=== PATIENT | male | born 1990 | race Hispanic/Latino ===

== ENCOUNTER 2017-03-10 08:04 | Day surgery (SDC) | payer MEDICAID ==
[~2017-03-10 08:04] MED LIST: ANCEF/STERILE WATER 2 GM/20 ML 2 GM/20 ML SYRINGE IV NR; MARCAINE 0.5% 30 ML INFILTRATI ONE; MARCAINE 0.5% INFILTRATI ONE; NACL 0.9% IR ONE; NEOSPORIN GU IR ONE
--- NOTE | 2017-03-10 09:15 | Anesthesia Consultation ---
Anesthesia Consult and Med Hx Date of service: 03/10/17 - Airway Anesthetic Teeth Evaluation: Good ROM Head & Neck: Adequate Mallampati Class: Class III Intubation Access Assessment: Probably Good - Pulmonary Exam CTA: Yes - Cardiac Exam Cardiac Exam: No Murmur - Pre-Operative Health Status ASA Pre-Surgery Classification: ASA2 - Pulmonary Hx Smoking: No Hx Asthma: Yes (PRN INHALER/LAST USE 2015) - Central Nervous System Hx Psychiatric Problems: Yes (SEVERE EMOTIONAL BEHAVIOR DISORDER(SEBD)) - Other Systems Hx Alcohol Use: No Hx Substance Use: No Hx Cancer: No - Additional Comments Anesthesia Medical History Comments: AUTISM
[2017-03-10] MEDS ORDERED: PEPCID IV NR (09:30)
[2017-03-10] MEDS ORDERED: LACTATED RINGERS 1,000 ML IV SCH (09:30)
[2017-03-10] MEDS ORDERED: VERSED IV NR (09:30)
--- NOTE | 2017-03-10 09:50 | Short Stay Summary ---
Short Stay Documentation Date of service: 03/10/17 - History H&P: obtained from office - Allergies and Medications Current Medications: Allergies carbamazepine [From Tegretol] Allergy (Verified 03/04/17 09:43) HALLUCINATIONS Home Medications Medication Instructions Recorded Confirmed Last Taken Type Albuterol Sulfate [Albuterol 0.63% 0.63 mg IH TID PRN 03/04/17 03/10/17 History NEBS] Cetirizine HCl [ZyrTEC] 10 mg PO DAILY 03/04/17 03/04/17 03/10/17 07:00 History Clonidine HCl [Catapres] 0.3 mg PO DAILY 03/04/17 03/04/17 03/09/17 20:30 History Montelukast [Singulair] 10 mg PO QPM 03/04/17 03/04/17 03/09/17 20:30 History Ranitidine HCl [Zantac 300 MG TAB] 300 mg PO DAILY 03/04/17 03/04/17 03/09/17 20 :30 History risperiDONE [RisperDAL] 1 mg PO DAILY 03/04/17 03/04/17 03/10/17 07:00 History Active Medications Cefazolin Sodium (Ancef/Sterile Water 2 Gm/20 Ml) 2 gm in 20 mls @ 80 mls/hr IV PREOP NR PRN Reason: Protocol Stop: 03/10/17 23:59 - Brief post op/procedure progress note Date of procedure: 03/10/17 Pre-op diagnosis: degenerative arthritis right shoulder Post-op diagnosis: same Procedure: Reversed total shoulder right Anesthesia: GETA Surgeon: JARAD GHOTRA Machine Stacker: ALEJANDRO LOPEZ Estimated blood loss: minimal Pathology: none Specimen disposition: discarded Condition: stable - Disposition Condition at discharge: Stable Disposition: DISCHARGED TO HOME OR SELFCARE Short Stay Discharge Plan Follow up with: PRIMARY CARE, [Primary Care Provider] - 7 Days
[2017-03-10] MEDS ORDERED: DIPRIVAN 10 MG/ML IV ONE (09:58)
[2017-03-10] MEDS ORDERED: XYLOCAINE MPF 2% ONE (09:58)
[2017-03-10] MEDS ORDERED: SUBLIMAZE ONE (09:59)
[2017-03-10] MEDS ORDERED: DECADRON ONE (10:04)
[2017-03-10] MEDS ORDERED: ZOFRAN ONE (10:04)
--- NOTE | 2017-03-10 10:07 | Anesthesia Day of Surgery ---
Anesthesia Day of Surgery - Day of Surgery Patient Examined: Yes Patient H&P Reviewed: Yes Patient is NPO: Yes
[2017-03-10] MEDS ORDERED: NACL 0.9% IR ONE (10:18)
[2017-03-10] MEDS ORDERED: NEOSPORIN GU IR ONE (10:18)
[2017-03-10] MEDS ORDERED: MARCAINE 0.5% INFILTRATI ONE ×2 (10:20)
[2017-03-10] MEDS ORDERED: NORCO 5/325 PO PRN (11:30)
--- NOTE | 2017-03-10 11:45 | Post Anesthesia Evaluation ---
- Post Anesthesia Evaluation Patient Participated: Yes Airway Patent: Yes Stable Respiratory Function: Yes Nausea/Vomiting: No Temp > 96.8F: Yes Pain Manageable: Yes Adequeate Hydration: Yes Anesthesia Complications: No Block Receding Appropriately: Not Applicable Patient on Ventilator: No
[2017-03-10 12:01] VITALS: BP 130/90
--- NOTE | 2017-03-19 12:26 | Operative Report ---
PREOPERATIVE DIAGNOSIS: Ganglion cyst, dorsum of right foot. POSTOPERATIVE DIAGNOSIS: Ganglion cyst, dorsum of right foot. PROCEDURE: Ganglion cyst excision, right foot. COMPLICATIONS: None. PROCEDURE IN DETAIL: Once the patient was on the surgical table, prepping and draping of the patient was done in usual fashion. A time-out carried out. The incision was done by making a 3 cm incision over the dorsum of the foot. Dissection was carried down to subcutaneous tissues. The extensor tendons were found and . The ganglion cyst was exposed. The ganglion cyst was developed and followed all the way down to the base this ganglion cyst was coming from the intermetatarsal space between the second and third toes. The ganglion cyst was excised without any problems. The wound was irrigated. Hemostasis achieved infiltrated with Marcaine with epinephrine. Closure of the wound was carried out by using Vicryl, 2-0, 4-0, and Steri-Strips. The compression bandage applied. The patient tolerated the procedure well. There were no complications. JOB# [id number] EDITA/ADITYA
== END 2017-03-10 11:55 | disposition home or self-care (01) ==
LOC: OR 08:04
DX: M67.471 Ganglion, right ankle and foot (principal); J45.909 Unspecified asthma, uncomplicated; F84.0 Autistic disorder; K21.9 Gastro-esophageal reflux disease without esophagitis; Z79.899 Other long term (current) drug therapy; Z82.3 Family history of stroke; Z83.3 Family history of diabetes mellitus; Z80.9 Family history of malignant neoplasm, unspecified; Z82.61 Family history of arthritis; Z82.49 Family history of ischemic heart disease and other diseases of the circulatory system
CPT/HCPCS: 88304; J0690; J1100; J2250; J2405; J2704; J3010; J7120